=== PATIENT | female | born 1980 | race Caucasian/White ===

== ENCOUNTER 2016-11-14 17:43 | Observation (INO) | payer SELFPAY ==
[~2016-11-14] VITALS: Ht 154.9 cm; Wt 62.1 kg
--- NOTE | 2016-11-14 20:20 | ED ORDER SUMMARY ---
..... Patient: THERESA MUNOZ OrderSheet [facility] VisitID: [id number] [place] [address] 36y, F Registration Date/Time: 11/14/2016 ORDER SHEET Weight: 63.5 kg (stated) Allergies: No Known Drug Allergy GENERAL ORDERS: US Abdomen Limited (No) Urgent (18:17 11/14/2016 Patricia Joaquin) (Ack 18:18 Maddy) (18:37 JRomanelli R.N.) CBC w Diff Urgent (18:17 11/14/2016 Patricia Joaquin) (Ack 18:18 Maddy) (18:37 JRomanelli R.N.) CMP Urgent (18:17 11/14/2016 Patricia Joaquin) (Ack 18:18 Maddy) (18:37 JRomanelli R.N.) UA-Culture if indicated Urgent (18:17 11/14/2016 Patricia Joaquin) (Ack 18:18 Maddy) (19:44 JQuivey R.N.) Amylase Urgent (18:17 11/14/2016 Patricia Joaquin) (Cancelled: Duplicate Order18:18 Patricia Joaquin) (Ack 18:18 DHARAoecorazon) Urine Urgent (18:17 11/14/2016 Patricia Joaquin) (Ack 18:18 Maddy) (19:44 JQuivey R.N.) Lipase Urgent (18:17 11/14/2016 Patricia Joaquin) (Ack 18:18 Maddy) (18:37 JRomanelli R.N.) MEDICATION ORDERS: GI Cocktail WHITE PO 30 mL (NOW) (18:11/14/2016 Patricia Joaquin) (18:41 LWhalen R.N.) IV FLUIDS: IV NS : initial bolus 1000 mL (1000 mL/hr), then none - for X1 (NOW) (18:17 11/14/2016 Patricia Joaquin) (18:36 JRomanelli R.N.) Zofran IV 4 mg (NOW) (18:11/14/2016 Patricia Joaquin) (18:37 JRomanelli R.Raymundo) Morphine IV 4 mg (HIGH ALERT MEDICATION, NOW) (19:16 11/14/2016 Patricia Joaquin) (19:20 Ranjith Macias) Zosyn IV 4.5 gm/100mL (NOW) (20:28 11/14/2016 Patricia Joaquin) (20:39 Ranjith Melgar.Raymundo) Zofran IV 4 mg (NOW) (21:40 11/14/2016 Ranjith Macias verbal order read back to Patricia Joaquin) (21:43 Jitendra R.NSussy) ORDER SHEET NOTES: [Electronically signed by Arie Soares R.N. (02:11/15/2016)] [Electronically signed by Ehsan Richards Dr. (02:11/16/2016)] [Electronically locked/signed by Arie Soares R.N. (02:11/15/2016)]
--- NOTE | 2016-11-14 20:20 | ED CLINICAL REPORT ---
Clinical Report - Physicians/Mid Levels [facility] [address] [place] [address] 11/14/2016 17:44 Patient: THERESA MUNOZ Time Seen: 1810; initial patient contact. Arrived- By private vehicle. Historian- patient. HISTORY OF PRESENT ILLNESS Chief Complaint: ABDOMINAL PAIN. It is described as sharp. No radiation. It is described as located in the right upper quadrant. This started past 2 months and is still present and worsening. It was abrupt in onset and has been intermittent but is not gone now. At its maximum, severity described as moderate. When seen in the E.D., severity described as moderate. Modifying factors- worsened by food. Not relieved by anything. The patient has had nausea, loss of appetite and vomiting. No diarrhea. No additional abdominal pain. (family hx of galstones with siblings). No recent travel. Similar symptoms previously: None. Recent medical care: Not recently seen/assessed. REVIEW OF SYSTEMS No constipation, black stools, hematemesis, bloody stools or fever. No skin rash. All systems otherwise negative, except as recorded above. PAST HISTORY See nurses notes. Medications: Zantac Oral, as needed. Ibuprofen Oral 400 mg, PRN. Suboxone Sublingual (Film 8-2 mg), daily. Allergies: No Known Drug Allergy. SOCIAL HISTORY Smoker- current status unknown. No alcohol use or drug use. No recent travel. Is a local resident. FAMILY HISTORY History of gall bladder problems. ADDITIONAL NOTES The nursing notes have been reviewed. PHYSICAL EXAM Vital Signs: 11/14/2016 18:01 BP: 134/76. HR: 80. RR: 16. O2 saturation: 98%. Temp: 98.2 F. Pain level now: 4/10. Blood pressure normal. Oxygen saturation normal. Appearance: Alert. Oriented X3. No acute distress. Eyes: Pupils equal, round and reactive to light. Eyes normal inspection. No scleral icterus. ENT: Ears normal. Nose normal. Pharynx normal. Neck: Normal inspection. Neck supple. CVS: Normal heart rate and rhythm. Heart sounds normal. Pulses normal. Respiratory: No respiratory distress. Breath sounds normal. Chest nontender. Abdomen: Soft and nontender. Bowel sounds normal. Skin: Skin warm and dry. Normal skin color. No rash. Normal skin turgor. Extremities: Extremities exhibit normal ROM. No lower extremity edema. Neuro: Oriented X 3. No motor deficit. No sensory deficit. LABS, X-RAYS, AND EKG Abdominal Sonogram: Gallstones are present. The gallbladder is normal. No gallbladder wall thickening or pericholecystic fluid. The study was independently viewed by me and interpreted by the radiologist. The study was discussed with the radiologist (via pacs). Laboratory Tests: CBC w Diff: (BETTE: 11/14/2016 18:15) ( [facility] 11/14/2016 18:40) IP Test Result Flag Units (Reference) WHITE BLOOD COUNT 8.2 K/uL (4.5-11.5) RED BLOOD COUNT 4.47 M/uL (4.00-5.20) HEMOGLOBIN 12.9 gm/dL (12.0-16.0) HEMATOCRIT 38.9 % (36.0-46.0) MEAN CELL VOLUME 87 fL (80-100) MEAN CORPUSCULAR HGB 29 pg (26-34) MEAN CORPUSCULAR HGB CONC 33 g/dL (31-37) RED CELL DISTRIBUTION WIDTH 12.5 % (11.6-14.8) PLATELET COUNT 305 K/uL (150-400) CMP: (BETTE: 11/14/2016 18:15) ( [facility] 11/14/2016 18:48) Final results Test Result Flag Units (Reference) GLUCOSE 100 mg/dL (70-110) BUN 20 H mg/dL (7-18) CREATININE 0.6 mg/dL (0.6-1.3) Estimated GFR >60 mL/min Estimated GFR- >60 mL/min Note: Persistent reduction over 3 months in eGFR<60 mL/min/1.73 m2 defines CKD. Patients with eGFR values>=60 mL/min/1.73 m2 may also have CKD if evidence ofpersistent proteinuria. Additional information may be foundat www.kidney.org. SODIUM 142 mmol/L (136-145) POTASSIUM 3.8 mmol/L (3.5-5.1) CHLORIDE 103 mmol/L (98-107) CARBON DIOXIDE 26 mmol/L (21-32) CALCIUM 8.9 mg/dL (8.5-10.1) TOTAL PROTEIN 8.3 H g/dL (6.4-8.2) ALBUMIN 4.4 g/dL (3.3-5.0) BILIRUBIN, TOTAL 0.5 mg/dL (0.0-1.0) ALKALINE PHOSPHATASE 62 U/L (46-116) AST (SGOT) 20 U/L (15-37) ALT (SGPT) 20 U/L (12-78) LIPASE 128 U/L (73-393) . PROGRESS AND PROCEDURES Course of Care: he patient is a 36-year-old female family history significant for cholelithiasis presented for evaluation of epigastric abdominal pain. Patient is nontoxic on examination. Differential diagnosis at this time includes pancreatitis, hepatitis, biliary colic, urinary tract infection. Patient is agreeable to the treatment plan. Pain medication has been offered. The patient's workup was unremarkable for the findings above. Patient with cholelithiasis without cholecystitis. Patient was monitored further in the emergency department. Patient did not have significant improvement with pain. Had a discussion with the patient in regards to cholelithiasis and biliary colic. Patient was agreeable to consultation with general surgery for possible removal of her gallbladder. At this time, patient will be admitted for acute cholecystitis. Because of the patient's persistent pain, ultrasound likely caught the patient's gallbladderand early stage. The patient's persistent pain and also not improvement witha GI cocktail, feel the patient will likely have significant Cholecystitis. Discussed with the patient workup. Emergency department including diagnosis and plan of care. All questions have been answered. The patient expressed understanding of these instructions and was agreeable to them. Spoke with general surgery. Patient will be admitted. No further recommendations. Critical care performed (30 minutes). Time is exclusive of separately billable procedures. Time includes: direct patient care, patient reassessment, coordination of patient care, interpretation of data (laboratory data), review of patient's medical records, medical consultation and documentation of patient care. Consult obtained from surgery. Dr. Saul. Disposition: Observation in Acute Care. CLINICAL IMPRESSION acute cholecystitis acute nausea and vomiting. (Electronically signed by Ehsan Richards Dr. 11/16/2016 2:26)
--- NOTE | 2016-11-14 20:20 | ED ORDER SUMMARY ---
..... Patient: THERESA MUNOZ OrderSheet [facility] VisitID: [id number] [place] [address] 36y, F Registration Date/Time: 11/14/2016 ORDER SHEET Weight: 63.5 kg (stated) Allergies: No Known Drug Allergy GENERAL ORDERS: US Abdomen Limited (No) Urgent (18:17 11/14/2016 Patricia Joaquin) (Ack 18:18 Maddy) (18:37 JRomanelli R.N.) CBC w Diff Urgent (18:17 11/14/2016 Patricia Joaquin) (Ack 18:18 Maddy) (18:37 JRomanelli R.N.) CMP Urgent (18:17 11/14/2016 Patricia Joaquin) (Ack 18:18 Maddy) (18:37 JRomanelli R.N.) UA-Culture if indicated Urgent (18:17 11/14/2016 Patricia Joaquin) (Ack 18:18 Maddy) (19:44 JQuivey R.N.) Amylase Urgent (18:17 11/14/2016 Patricia Joaquin) (Cancelled: Duplicate Order18:18 Patricia Joaquin) (Ack 18:18 DHARAoecorazon) Urine Urgent (18:17 11/14/2016 Patricia Joaquin) (Ack 18:18 Maddy) (19:44 JQuivey R.N.) Lipase Urgent (18:17 11/14/2016 Patricia Joaquin) (Ack 18:18 Maddy) (18:37 JRomanelli R.N.) MEDICATION ORDERS: GI Cocktail WHITE PO 30 mL (NOW) (18:11/14/2016 Patricia Joaquin) (18:41 LWhalen R.N.) IV FLUIDS: IV NS : initial bolus 1000 mL (1000 mL/hr), then none - for X1 (NOW) (18:17 11/14/2016 Patriica Joaquin) (18:36 JRomanelli R.N.) Zofran IV 4 mg (NOW) (18:11/14/2016 Patricia Joaquin) (18:37 JRomanelli R.Raymundo) Morphine IV 4 mg (HIGH ALERT MEDICATION, NOW) (19:16 11/14/2016 Patricia Joaquin) (19:20 Ranjith Macias) Zosyn IV 4.5 gm/100mL (NOW) (20:28 11/14/2016 Patricia Joaquin) (20:39 Ranjith Melgar.Raymundo) Zofran IV 4 mg (NOW) (21:40 11/14/2016 Ranjith Macias verbal order read back to Patricia Joaquin) (21:43 Jitendra R.NSussy) ORDER SHEET NOTES: [Electronically signed by Arie Soares R.N. (02:11/15/2016)] [Electronically signed by Ehsan Richards Dr. (02:11/16/2016)] [Electronically locked/signed by Arie Soares R.N. (02:11/15/2016)]
--- NOTE | 2016-11-14 20:20 | ED NURSING NOTES ---
Clinical Report - Nurses [facility] [address] [place] [address] 11/14/2016 17:44 Patient: THERESA MUNOZ TRIAGE Triage time 18:00 Nov 14 2016. Acuity: LEVEL 3. Chief Complaint: ABDOMINAL PAIN and NAUSEA. Alert. RHIANNA COMA SCORE: Rhianna Coma Scale: 15- eyes open spontaneously (4); best verbal response- oriented x 4 (5); best motor response- obeys commands (6). --18:12 Arie Soares R.N. 18:01 11/14/16. BP: 134/76. HR: 80. RR: 16. O2 saturation: 98% on room air. Temp: 98.2 F (oral). Pain level now: 4/10. --18:12 Arie Soares R.N. Weight: 63.5 kg stated. Height/Length: 61 inches Per Patient. BMI: 26.5. --18:06 Arie Soares R.N. Medications Suboxone Sublingual (Film 8-2 mg), daily. --18:05 Arie Soares R.N. Ibuprofen Oral 400 mg, PRN. --18:06 Arie Soares R.N. Zantac Oral, as needed. --18:06 Arie Soares R.N. Allergies No Known Drug Allergy. --18:06 Arie Soares R.N. Medication/allergy information source: the patient. --18:12 Arie Soares R.N. History Arrived by private vehicle. Historian: patient. Accompanied by sister. Primary physician (De[place]). ( RUQ Abdominal Discomfort associated with nausea for the last 2 months. Pain is intermittent usually but has now persisted for the last 2 days.). Onset. (about 2 days ago). She has had nausea and abdominal pain. ( No BM for 5 days). 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 PAST MEDICAL HX: Immunizations: status is unknown. SOCIAL HX: Heavy tobacco smoker (cigarette)- less than 1 pack per day. History of drug use. (Oxycodone). No alcohol use. No recent travel. No infectious disease exposure. ABUSE ASSESSMENT: No report of abuse. FALL RISK ASSESSMENT: Fall risk assessment completed. No fall risk identified. NUTRITIONAL RISK ASSESSMENT: The nutritional risk assessment revealed no deficiencies. FUNCTIONAL ASSESSMENT: Functional assessment: no impairments noted. LEARNING NEEDS ASSESSMENT: The learning needs assessment revealed no barriers. SKIN INTEGRITY ASSESSMENT: Skin integrity risk assessment completed. No skin integrity risk identified. --18:12 Arie Soares R.N. PROBLEMS: Gastritis. Reflux. Anxiety Reaction. Neck Pain. --18:08 Arie Soares R.N. ADDITIONAL SURGERIES: . Tubal Ligation. --18:08 Arie Soares R.N. Interventions ID band on patient. To room. --18:12 Arie Soares R.N. PHYSICAL ASSESSMENT Ambulatory to room. GENERAL / NEURO / PSYCH: Alert. Oriented X 4. HEENT: Mucous membranes are pink. RESPIRATORY: Respirations not labored. CVS: Normal sinus rhythm noted. Capillary refill less than 2 seconds. GI / : Abdomen soft. Bowel sounds within normal limits. SKIN: Skin is warm and dry. --18:12 Arie Soares R.N. NURSING PROGRESS NOTES Patient gowned. Reassurance given. Patient identifiers checked. Call light placed in reach. Side rails up. Bed placed in lowest position. Brakes of bed on. Patient ready for evaluation- chart flagged and ED physician notified. --18:12 Arie Soares R.N. 18:30 11/14/2016 Started bag #1 1000 mL IV Fluids IV NS (Saline); at 1000 mL/hr over 60 minute(s) via site #1. Allergies verified and confirmed 5 rights. IV patency established. IV site checked: no pain, redness, or swelling. IV flushed thoroughly pre- and post-medication administration. --18:36 Arie Soares R.N. 18:31 11/14/2016 Site #1 started via IV in the right hand with an 20g angiocath, with aseptic technique and good blood return; one attempt. Blood drawn: rainbow set. Labeled in the presence of the patient and sent to the lab. Saline lock flushed with 10 mL saline. --18:36 Arie Soares R.N. 18:35 11/14/2016 Zofran (Ondansetron HCl) IVP 4 mg given over 2 minute(s) via site #1. Allergies verified and confirmed 5 rights. IV patency established. IV site checked: no pain, redness, or swelling. IV flushed thoroughly pre- and post-medication administration. IVP given by RN. --18:37 Arie Soares R.N. ( preparatory technician in room doing procedure.). --18:38 Arie Soares R.N. 18:41 11/14/2016 GI COCKTAIL WHITE (Simethicone) PO Oral Suspension 30 mL given. Allergies verified and confirmed 5 rights. --18:41 Nabeel Waldron R.N. 19:20 11/14/2016 Morphine IVP 4 mg given over 2 minute(s) via site #1. Allergies verified, confirmed 5 rights and sedative warning given. IV patency established. IV site checked: no pain, redness, or swelling. IV flushed thoroughly pre- and post-medication administration. IVP given by RN. --19:20 Arie Soares R.N. 19:40. Patient ID band checked for patient name and birthdate: patient confirmed. Clean catch urine collected with return of bernice-colored clear urine; sample sent to lab for urinalysis and HCG. Specimen labeled in the presence of the patient. --19:44 Arie Herrera R.N. 19:30 11/14/2016 IV Fluids IV NS Bag Change: bag #1 infused. Total amount infused: 1000. STARTED bag #2 at 1000 mL/hr via IV pump. Confirmed 5 rights. IV patency established. IV site checked: no pain, redness, or swelling. IV flushed thoroughly. --01:56 Arie Soares R.N. 20:30 11/14/2016 IV Fluids IV NS Discontinued: bag #2 infused. Total amount infused: 1000 mL. IV patency established. IV site checked: no pain, redness, or swelling. IV flushed thoroughly. --01:58 Arie Soares R.N. 20:38 11/14/2016 Started 4.5 gm of Zosyn (Piperacillin Sod-Tazobactam So) IVPB in bag #1 100 mL; at 100 mL/hr over 60 minute(s) via site #1 via IV pump. Allergies verified and confirmed 5 rights. IV patency established. IV site checked: no pain, redness, or swelling. IV flushed thoroughly pre- and post-medication administration. --20:39 Arie Soares R.N. 21:40 11/14/2016 Zofran (Ondansetron HCl) IVP 4 mg given over 1 minute(s) via site #1. IV patency established. IV site checked: no pain, redness, or swelling. IV flushed thoroughly pre- and post-medication administration. IVP given by RN. --21:43 Radha Priest R.N. 21:50 11/14/2016 Site #[address] upon admission; patent, no pain and no signs of infiltration. Good blood return present. Converted to saline lock and flushed with 10 mL saline. --02:01 Arie Soares R.N. 21:50 11/14/2016 Zosyn IVPB Discontinued: bag #1 infused upon admission. Total amount infused: 100 mL. IV patency established. IV site checked: no pain, redness, or swelling. IV flushed thoroughly. --01:59 Arie Soares R.N. 21:45 11/14/16. BP: 122/74. HR: 78. RR: 16. O2 saturation: 99% on room air. Temp: 98.7 F (oral). Pain level now: 5/10. --02:03 Arie Soares R.N. DISPOSITION / DISCHARGE Departure time: 2149. --01:53 Arie Soares R.N. 21:50. Admitted. Transported via stretcher with IV. Report was given to a nurse via a phone call. Report included patient's care, treatment, medications, reviewed medication reconcilliation, and condition (including any recent changes or anticipated changes). All questions were answered. Report was acknowledged and care was transferred. Patient's personal items; items were placed in belongings bag and transported with the patient. --02:05 Arie Soares R.N. Locked/Released at 11/15/2016 2:06 by Arie Soares R.N.
--- NOTE | 2016-11-14 20:39 | DIAGNOSTIC IMAGING REPORT ---
PROCEDURE: US ABDOMEN ULTRASOUND-LIMITED INDICATION: EPIGASTRIC ABDOMINAL PAIN TECHNIQUE: Cevallos scale and color Doppler sonographic images were obtained of the right upper quadrant. COMPARISON: None. FINDINGS: The liver is normal in size, contour, and echotexture. No mass or biliary dilatation. The gallbladder contains a 2.5 cm mobile stone. Normal wall thickness at 1.8 mm. No pericholecystic fluid or Melendez's sign. Normal common duct at 4.7 mm. The visible portion of the inferior vena cava, abdominal aorta, and portal vein appear normal with appropriate direction of flow in the portal vein. The head of the pancreas is normal without ductal dilatation. The right kidney is normal measuring 9.6 cm. No free fluid in the right upper quadrant. IMPRESSION: 1. Cholelithiasis without sonographic evidence of cholecystitis. 2. Proximal pancreas appears normal.
[2016-11-14 22:03] VITALS: BP 124/78
[2016-11-14] MEDS ORDERED: BUPRENORPHINE HC8 MG SL (22:35)
[2016-11-15] VITALS (13 sets, daily range): BP systolic 101–162; BP diastolic 51–96
--- NOTE | 2016-11-15 17:27 | DIAGNOSTIC IMAGING REPORT ---
PROCEDURE: XR INTRAOPERATIVE LAP WILL INDICATION: LAP WILL WITH IOC TECHNIQUE: Intraoperative fluoroscopy provided for Dr. Saul performing an intraoperative cholangiogram following cholecystectomy. Total fluoroscopy time 4 seconds. Cumulative dose 1.0 mGy. COMPARISON: Ultrasound 11/14/2016 FINDINGS: A single intraoperative fluoroscopic spot image of the right upper quadrant of the abdomen demonstrates cannulation of the cystic duct stump and opacification of the intrahepatic and extrahepatic biliary tree. There are no filling defects. There is normal passage of contrast into the duodenum. IMPRESSION: 1. Negative intraoperative cholangiogram.
[2016-11-15] MEDS ORDERED: NORCO1 TA1 PO (17:32)
[2016-11-15] MEDS ORDERED: PHENERGAN EQUIV25 MG PO (17:35)
--- NOTE | 2016-11-15 17:36 | Provider's Discharge Care Plan ---
Problem, Goal, Plan Problem List 1. S/P laparoscopic cholecystectomy
--- NOTE | 2016-11-15 17:36 | Provider's Discharge Care Plan ---
Problem, Goal, Plan Problem List 1. S/P laparoscopic cholecystectomy
--- NOTE | 2016-11-15 19:19 | CONSULTATION REPORT ---
DATE OF CONSULTATION: 11/15/2016 CHIEF COMPLAINT: 1. Abdominal pain HISTORY OF PRESENT ILLNESS: The patient is a 36-year-old woman who presented to the hospital with a history of right upper quadrant abdominal pain. This pain existed for about the last 2 months with episodes of worsening, precipitated by eating. She reports that yesterday it got a lot worse. Since entering the hospital, she has received pain medication and antibiotics and seems a little bit better this morning, but still has some persistent pain in the area. She denies any history of jaundice, pancreatitis or other GI disturbance. The patient reports associated nausea with episodes of pain, which have been intermittent. This latest pain is persistent over 48 hours. She also denies having had a bowel movement for several days. She treated herself with Zantac and Tums without relief. MEDICAL/SURGICAL HISTORY: Past medical history: Includes hypertension and she has been on a Suboxone program since pain medication withdrawal after her last 6 years ago. She is G5, P4, with 2 C-sections. Past surgery: Includes x2, as well as tubal ligation. MEDICATIONS: 1. Suboxone film 8-2 mg daily. 2. Ibuprofen 400 mg as needed. 3. Zantac oral as needed. ALLERGIES: 1. NONE TO MEDICATIONS. SOCIAL HISTORY: She is single with a male significant other. She smokes about 1/ 4 pack per day of cigarettes. Does not take alcohol. She is a homemaker. She goes to [employer]. FAMILY HISTORY: Her parents are alive and well. One grandmother had breast and ovarian cancer. REVIEW OF SYSTEMS: A multipoint review of systems was obtained on admission covering at least 12 review of system points. The patient reports her symptomatology is currently confined to the abdominal area. She denies any history of mental changes, ears and nose problems, visual problems, shortness of breath, productive cough, hemoptysis, palpitations, chest pain and additional GI symptoms as mentioned earlier. PHYSICAL EXAMINATION: VITAL SIGNS: The temperature is 98.4, pulse of 91, respirations 16, blood pressure 108/63, room air saturations 93%. GENERAL: The patient is alert and cooperative. HEENT: Her ears and nose demonstrated no gross external lesions. Eyes are equal. There is no icterus. NECK: Without palpable masses or thyromegaly. CHEST: Clear without wheeze or rales. HEART: Regular, without murmur or gallop. ABDOMEN: Reveals localized tenderness in the right subcostal and epigastric region with localized involuntary guarding and referred pain to this area. The rest of the abdomen is soft. There is a healed lower midline, as well as a transverse incision in the lower abdomen. EXTREMITIES: Symmetric. She moves without restriction. PSYCHIATRIC: Mental status is normal. NEUROLOGIC: Normal. LAB/IMAGING: Laboratory: White count is 7.9, hemoglobin and hematocrit 11.1 and 32.2. Chemistries reveal normal electrolytes, slightly elevated BUN on admission. Her bilirubin and lipase are normal. Urinalysis is 3.5 white cells, no red cells, negative for bacteria. test is also negative. An abdominal ultrasound was done, which demonstrates cholelithiasis, including a 2.5 cm mobile stone in the gallbladder. The pancreas appears normal. IMPRESSION: 1. Cholelithiasis with acute cholecystitis. PLAN: I recommended the patient undergo a laparoscopic cholecystectomy with cholangiography. I explained to the patient the nature of this operation, as well as alternatives, benefits and risks. Risks discussed included infection, bleeding, scars, pain, damage to local structures, possible common duct stones, postoperative pancreatitis and others. She would like to proceed with surgery as described to her.
--- NOTE | 2016-11-15 19:27 | OPERATIVE REPORT ---
DATE OF SURGERY: 11/15/2016 SURGEON: Antonio Saul MD DIRECTOR OF PLACEMENT: Sabiha Kidd III, MD PREOPERATIVE DIAGNOSIS: 1. Cholelithiasis with acute cholecystitis POSTOPERATIVE DIAGNOSIS: 1. Cholelithiasis with acute cholecystitis PROCEDURE PERFORMED: 1. Laparoscopic cholecystectomy, cholangiography ANESTHESIA: General. COMPLICATIONS: No intraoperative complications were encountered. INDICATIONS: The patient is a 36-year-old woman presenting with persistent 2-day history of right upper quadrant abdominal pain with cholelithiasis on ultrasound. SURGICAL TECHNIQUE: The patient was taken to the operating room, where a general anesthetic was administered and patient prepped and draped in the usual sterile fashion. An orogastric tube, IV antibiotics, and sequential compression devices were in place. A local anesthetic of 0.5% Marcaine with epinephrine was used at each incision site. An infraumbilical incision was made and a Veress needle used to insufflate the abdominal cavity. A 10 mm cannula was passed and visualization was obtained. There were adhesions to the anterior wall of the gallbladder. Three additional cannulae were placed and the adhesions , which were all omental, were taken down using electrocautery and blunt dissection. The neck of the gallbladder was circumferentially dissected. The cystic artery was tethering the neck of the gallbladder; therefore, it was first taken down between clips right up on the neck of the gallbladder, freeing up the cystic duct. A clip was placed on the upper cystic duct and a fluoroscopic cholangiogram carried out revealing free flow into duodenum and no filling defects in the common duct. The cystic duct was divided between clips and the gallbladder stripped from the gallbladder fossa using electrocautery. A little bit of bile leakage occurred due to a thin walled back wall of the gallbladder with obliteration of planes. This was controlled with a grasper. The gallbladder was placed in a specimen bag and pulled up through the upper trocar site where the contents were removed, including using a Maria C forceps and suction and the gallbladder and the pouch delivered and submitted for histopathology. Irrigation was used in the bed of the gallbladder. Hemostasis was completed and additional Marcaine was instilled. Irrigation fluid was first suctioned away before instillation of Marcaine, gas was evacuated and the midline trocar sites closed at the skin with interrupted subcuticular 4-0 Vicryl suture. Steri-Strips and dressings were placed at all sites and the patient left the operating room in good condition.
--- NOTE | 2016-11-16 02:26 | ED MED RECONCILIATION SUMMARY ---
Patient: THERESA MUNOZ Medication Reconciliation Report [facility] VisitID: [id number] [address] [place] [address] 36y, F Registration Date/Time: 11/14/2016 Weight: 63.5 kg Height/Length: 61 in. BMI: 26.5 ALLERGIES: No Known Drug Allergy The patient's Home Medications are listed below: THE FOLLOWING MEDICATIONS NEED TO BE RECONCILED: Ibuprofen Oral 400 mg, PRN Suboxone Sublingual (8-2 mg), daily Zantac Oral The source(s) of the original Home Medication information: patient The following Medications were given to the patient in the Emergency Department: IV NS IV Fluids bolus 0, then 1000 mL/hr, administered: 11/14/2016 6:30:00 PM Zofran [IVP] IVP 4 mg, administered: 11/14/2016 6:35:00 PM GI COCKTAIL WHITE [PO] PO 30 mL, administered: 11/14/2016 6:41:00 PM Morphine [IVP] IVP 4 mg, administered: 11/14/2016 7:20:00 PM Zosyn [IVPB] IVPB bolus 0, then 4.5 gm 100 mL/hr, administered: 11/14/2016 8:38:00 PM Zofran [IVP] IVP 4 mg, administered: 11/14/2016 9:40:00 PM The following Medications were prescribed to the patient: None.
--- NOTE | 2016-11-16 02:26 | ED MAR SUMMARY ---
..... Medication Administration Record [facility] [address] [address] Patient: THERESA MUNOZ Visit ID: [id number] 36y, F Weight: 63.5 kg Height/Length: 61 in BMI: 26.5 ALLERGIES: No Known Drug Allergy Start 18:30 11/14/2016 Arie Soares R.N., Stop 20:30 11/14/2016 Arie Soares R.N. Medication Administered: IV NS (SALINE), Dose: IV Fluids over 60 minute(s), Rate: 1000 mL/hr, Dispensed: 1000 mL bag, Site: #1. Medication Ordered: IV NS : initial bolus 1000 mL (1000 mL/hr), then none - for X1 (NOW). Given 18:35 11/14/2016 Arie Soares R.N. Medication Administered: ZOFRAN [IVP] (ONDANSETRON HCL), Dose: 4 mg IVP over 2 minute(s), Site: #1 right hand. Medication Ordered: Zofran IV 4 mg (NOW). Given 18:41 11/14/2016 Nabeel Waldron R.N. Medication Administered: GI COCKTAIL WHITE [PO] (SIMETHICONE), Dose: 30 mL Oral Suspension PO. Medication Ordered: GI Cocktail WHITE PO 30 mL (NOW). Given 19:20 11/14/2016 Arie Soares RSussyNSussy Medication Administered: MORPHINE [IVP], Dose: 4 mg IVP over 2 minute(s), Site: #1 right hand. Medication Ordered: Morphine IV 4 mg (HIGH ALERT MEDICATION, NOW). Start 20:38 11/14/2016 Arie Soares R.N., Stop 21:50 11/14/2016 Arie Soares R.N. Medication Administered: ZOSYN [IVPB] (PIPERACILLIN SOD-TAZOBACTAM SO), Dose: 4.5 gm IVPB over 60 minute(s), Rate: 100 mL/hr, Dispensed: 100 mL bag, Site: #1 right hand. Medication Ordered: Zosyn IV 4.5 gm/100mL (NOW). Given 21:40 11/14/2016 Radha Priest R.N. Medication Administered: ZOFRAN [IVP] (ONDANSETRON HCL), Dose: 4 mg IVP over 1 minute(s), Site: #1 right hand. Medication Ordered: Zofran IV 4 mg (NOW).
--- NOTE | 2016-11-16 02:26 | ED DISCHARGE INSTRUCTIONS ---
Patient: THERESA MUNOZ General Instructions [facility] VisitID: [id number] [address] [place] [address] 36y, F Registration Date/Time: 11/14/2016 acute cholecystitis acute nausea and vomiting. (Electronically signed by Ehsan Richards Dr. 11/16/2016 2:26)
--- NOTE | 2016-11-16 02:26 | ED MAR SUMMARY ---
..... Medication Administration Record [facility] [address] [place] [address] Patient: THERESA MUNOZ Visit ID: [id number] 36y, F Weight: 63.5 kg Height/Length: 61 in BMI: 26.5 ALLERGIES: No Known Drug Allergy Start 18:30 11/14/2016 Arie Soares R.N., Stop 20:30 11/14/2016 Arie Soares R.N. Medication Administered: IV NS (SALINE), Dose: IV Fluids over 60 minute(s), Rate: 1000 mL/hr, Dispensed: 1000 mL bag, Site: #1. Medication Ordered: IV NS : initial bolus 1000 mL (1000 mL/hr), then none - for X1 (NOW). Given 18:35 11/14/2016 Arie Soares R.N. Medication Administered: ZOFRAN [IVP] (ONDANSETRON HCL), Dose: 4 mg IVP over 2 minute(s), Site: #1 right hand. Medication Ordered: Zofran IV 4 mg (NOW). Given 18:41 11/14/2016 Nabeel Waldron R.N. Medication Administered: GI COCKTAIL WHITE [PO] (SIMETHICONE), Dose: 30 mL Oral Suspension PO. Medication Ordered: GI Cocktail WHITE PO 30 mL (NOW). Given 19:20 11/14/2016 Arie Soares RSussyNSussy Medication Administered: MORPHINE [IVP], Dose: 4 mg IVP over 2 minute(s), Site: #1 right hand. Medication Ordered: Morphine IV 4 mg (HIGH ALERT MEDICATION, NOW). Start 20:38 11/14/2016 Arie Soares R.N., Stop 21:50 11/14/2016 Arie Soares R.N. Medication Administered: ZOSYN [IVPB] (PIPERACILLIN SOD-TAZOBACTAM SO), Dose: 4.5 gm IVPB over 60 minute(s), Rate: 100 mL/hr, Dispensed: 100 mL bag, Site: #1 right hand. Medication Ordered: Zosyn IV 4.5 gm/100mL (NOW). Given 21:40 11/14/2016 Radha Priest R.N. Medication Administered: ZOFRAN [IVP] (ONDANSETRON HCL), Dose: 4 mg IVP over 1 minute(s), Site: #1 right hand. Medication Ordered: Zofran IV 4 mg (NOW).
--- NOTE | 2016-11-16 02:26 | ED DISCHARGE INSTRUCTIONS ---
Patient: THERESA MUNOZ General Instructions [facility] VisitID: [id number] [address] [place] [address] 36y, F Registration Date/Time: 11/14/2016 acute cholecystitis acute nausea and vomiting. (Electronically signed by Ehsan Richards Dr. 11/16/2016 2:26)
--- NOTE | 2016-11-16 02:26 | ED MED RECONCILIATION SUMMARY ---
Patient: THERESA MUNOZ Medication Reconciliation Report [facility] VisitID: [id number] [address] [place] [address] 36y, F Registration Date/Time: 11/14/2016 Weight: 63.5 kg Height/Length: 61 in. BMI: 26.5 ALLERGIES: No Known Drug Allergy The patient's Home Medications are listed below: THE FOLLOWING MEDICATIONS NEED TO BE RECONCILED: Ibuprofen Oral 400 mg, PRN Suboxone Sublingual (8-2 mg), daily Zantac Oral The source(s) of the original Home Medication information: patient The following Medications were given to the patient in the Emergency Department: IV NS IV Fluids bolus 0, then 1000 mL/hr, administered: 11/14/2016 6:30:00 PM Zofran [IVP] IVP 4 mg, administered: 11/14/2016 6:35:00 PM GI COCKTAIL WHITE [PO] PO 30 mL, administered: 11/14/2016 6:41:00 PM Morphine [IVP] IVP 4 mg, administered: 11/14/2016 7:20:00 PM Zosyn [IVPB] IVPB bolus 0, then 4.5 gm 100 mL/hr, administered: 11/14/2016 8:38:00 PM Zofran [IVP] IVP 4 mg, administered: 11/14/2016 9:40:00 PM The following Medications were prescribed to the patient: None.
[2016-11-16 02:43] VITALS: BP 125/73
[2016-11-16 07:40] VITALS: BP 118/82
== END 2016-11-16 09:45 | disposition home or self-care (01) ==
LOC: ED SRH 17:43 → ACUTE2 SRH 20:36 → TRANS SRH 20:36 → ACUTE2 SRH 21:50
PROVIDERS: ADMIT Surgery
PROC: 0FT44ZZ Resection of Gallbladder, Percutaneous Endoscopic Approach (ICD-10-PCS; principal; 2016-11-15 16:30)
PROC: BF101ZZ Fluoroscopy of Bile Ducts using Low Osmolar Contrast (ICD-10-PCS; principal; 2016-11-15 16:30)
DX: K80.00 Calculus of gallbladder with acute cholecystitis without obstruction (principal); R11.2 Nausea with vomiting, unspecified; I10 Essential (primary) hypertension; F11.20 Opioid dependence, uncomplicated; F17.210 Nicotine dependence, cigarettes, uncomplicated
CPT/HCPCS: 29229; 29230; 50002; 60001; 70002; 80102; 80248; 81238; 82794; 82807; 83338; 83339; 83348; 83587; 83920; 83937; 83982; 84038; 90004; 90074; 90100; 91643; 92235; 92520; 92540; 93070; 95059